=== PATIENT | female | born 1965 ===

== ENCOUNTER 2018-11-26 19:10 | Observation (INO) | payer MEDICARE ==
[~2018-11-26] VITALS: Ht 167.6 cm; Wt 90.7 kg
[2018-11-26] MEDS ORDERED: GABAPENTIN100 MG PO (19:33)
[2018-11-26] MEDS ORDERED: BAYER CHEWABLE81 MG PO (19:33)
[2018-11-26] MEDS ORDERED: CYCLOBENZAPRINE10 MG PO (19:33)
[2018-11-26] MEDS ORDERED: RENVELA0.8 GM PO (19:33)
[2018-11-26] MEDS ORDERED: PLAVIX75 MG PO (19:34)
[2018-11-26] MEDS ORDERED: ZOLOFT50 MG PO (19:34)
[2018-11-26] MEDS ORDERED: RENA-VITE TABL0.8 MG PO (19:34)
[2018-11-26] MEDS ORDERED: LISINOPRIL40 MG PO (19:34)
[2018-11-26] MEDS ORDERED: HYDRALAZINE HCL50 MG PO (19:35)
[2018-11-26] MEDS ORDERED: LASIX80 MG PO (19:35)
[2018-11-26] MEDS ORDERED: LIPITOR40 MG PO (19:35)
[2018-11-26 20:14] VITALS: BP 173/76
[2018-11-26 20:30] VITALS: BP 186/84
[2018-11-26 20:54] LABS: BASOPHILS 0.1 % (0-2); EOSINOPHILS 2.1 % (0-7); HEMOGLOBIN 10.5 g/dL (12-16); IMMATURE GRANULOCYTES 0.1 % (0-5); LYMPHOCYTES 10.7 % (15-50); MCH 30.9 pg (26.0-34.0); MCHC 31.8 g/dL (31.0-37.0); MCV 97.1 fL (80.0-100.0); MEAN PLATELET VOLUME 10.3 fL (7.4-10.4); MONOCYTES 3.6 % (2-11); NEUTROPHILS 83.4 % (40-80); PLATELET COUNT 186 10x3/uL (130-400); RDW 16.9 % (11.5-14.5)
[2018-11-26 21:09] LABS: INR 1.21 (0.85-1.17); PROTIME 14.7 SECONDS (11.6-15.0)
[2018-11-26 21:15] LABS: ALBUMIN 3.2 g/dL (3.4-5.0); ALKALINE PHOSPHATASE 198 U/L (46-116); ALT (SGPT) 44 U/L (10-68); BILIRUBIN - TOTAL 0.55 mg/dL (0.2-1.3); CALC OSMOLALITY 310 mosm/kg (275-300); CALCIUM 8.3 mg/dL (8.5-10.1); CARBON DIOXIDE 24.6 mmol/L (21.0-32.0); CHLORIDE - SERUM 100 mmol/L (98-107); CREATININE - SERUM 7.4 mg/dL (0.6-1.3); GLUCOSE 362 mg/dL (74-106); POTASSIUM - SERUM 5.2 mmol/L (3.5-5.1); PROTEIN - SERUM 6.4 g/dL (6.4-8.2); SODIUM 138 mmol/L (136-145); UREA NITROGEN 68 mg/dL (7-18); eGFR NON AFRICAN AMERICAN 6 mL/min (90-120)
--- NOTE | 2018-11-26 21:15 | NUR ---
PT TAKEN TO DIALYSIS ON 6L/MIN O2 AT THIS TIME. PT BELONGINGS BROUGHT WITH PT SON.
[2018-11-26 21:27] LABS: CKMB 5.3 U/L (0.0-3.6); CREATINE KINASE 118 UL (21-215); TROPONIN-I 0.024 ng/mL (0.000-0.060)
[2018-11-26 21:28] LABS: PRO BNP 45856 pg/mL (0-125)
--- NOTE | 2018-11-27 01:07 | NUR ---
PT BACK FROM DIALYSIS.
[2018-11-27 02:11] VITALS: BP 150/66
[2018-11-27] MEDS ORDERED: NOVOLOG100 UNIT/1 SC (03:37)
--- NOTE | 2018-11-27 03:40 | NUR ---
PT ARRIVED TO ROOM 2132 FROM ER WITH MOTHER. PT IS ALERT, CLOSING EYES AND SNORING QUICKLY, AROUSES TO VERBAL STIMULI. PT HAS A 20G IN RIGHT HAND. PATENT. CDI SWAB CAP IN PLACE. RIGHT HEMESPLIT NOTED WITH PRESSURE DRSG AND SAND BAG. NURSE REMOVED SAND BAG AND MARKED WHERE BLOOD IS NOTED. DID ASSESSMENT AND QUICK START AND HISTORY WITH NO CHANGE IN BLOOD SPOT IN RIGHT CHEST DRSG. ICE BAG PLACED ON CHEST. WILL LEAVE SANDBAG OFF AT THIS TIME. CHANGED DRSG ON RIGHT LOWER LEG. 5CM RED AND WARM AREA. A 2CM WHITE SOFT ROUND SORE NOTED. DRSG ON NOW CDI. PT ON 5L O2 NC. LEFT FOREARM HAS OLD AVF THAT ARE NOT WORKING. SIGN FOR RESERVE LEFT HUNG IN ROOM. PT HAS NO S/S OF DISTRESS. BED LOW AND CALL LIGHT IN REACH. WILL CPOC
[2018-11-27 04:00] VITALS: BP 149/60
[2018-11-27 04:24] VITALS: BP 149/66; BMI 32.3
--- NOTE | 2018-11-27 04:55 | NUR ---
CHECKED FOR BLEEDING. NO FURTHER BLEEDING NOTED. WILL CPOC
--- NOTE | 2018-11-27 07:00 | NUR ---
SHIFT ASSESSMENT COMPLTED. PT CARE ASSUMED, PT SLEEPING IN BED, MOTHER AT BEDSIDE. CALL LIGHT WITHIN REACH, WILL CONTINUE TO OBSERVE.
[2018-11-27 08:44] VITALS: BP 150/74
--- NOTE | 2018-11-27 09:33 | MORECARE ---
CASE MANAGEMENT DISCHARGE SUMMARY PATIENT: SANJEEV GUERRERO UNIT: [id number] ADM DATE: 11/27/18 AGE: 53 : 63 SEX: F ROOM/BED: D.2133 AUTHOR: AIDA URIBE PHYSICIAN: REFERRING PHYSICIAN: GONZALO GARG MD DATE OF SERVICE: 11/27/18 Discharge Plan Patient Name: SANJEEV GUERRERO Facility: [facility]:[place] : 1965 Planned Disposition: Home Anticipated Discharge Date: 11/27/18 Discharge Date: Expected LOS: 1 Initial Reviewer: [email or web address] Initial Review Date: 11/27/2018 Generated: 11/27/18 10:32 am Patient Name: SANJEEV GUERRERO Page [id number] at 0933 All edits/amendments must be made on the electronic document DICTATION DATE: 11/27/18931 CALCULUS TEACHER: MARIA LUISA 11/27/18931 RPT#: [id number] DC DATE: STATUS: ADM IN [facility] [address] [place] [address] END OF REPORT
[2018-11-27 12:29] VITALS: Ht 167.6 cm; Wt 90.7 kg
--- NOTE | 2018-11-27 15:51 | MORECARE ---
CASE MANAGEMENT DISCHARGE SUMMARY PATIENT: SANJEEV GUERRERO UNIT: [id number] ADM DATE: 11/27/18 AGE: 53 : 63 SEX: F ROOM/BED: D.2133 AUTHOR: AIDA URIBE PHYSICIAN: REFERRING PHYSICIAN: GONZALO GARG MD DATE OF SERVICE: 11/27/18 Discharge Plan Patient Name: SANJEEV GUERRERO [facility] : 1965 Planned Disposition: Home Anticipated Discharge Date: 11/27/18 Discharge Date: Expected LOS: 1 Initial Reviewer: [email or web address] Initial Review Date: 11/27/2018 Generated: 11/27/18 4:50 pm External Providers External Provider: [place] Next Contact Date: 11/27/2018 Service Request Date: Service Type: Resolution: Reviewer: Comments: Last DP export: 11/27/18 8:33 a Patient Name: SANJEEV GUERRERO Page [id number] at 1551 All edits/amendments must be made on the electronic document DICTATION DATE: 11/27/18 155 PVC LOADER: MARIA LUISA 11/27/18 1550 RPT#: [id number] ND DATE: STATUS: ADM IN [facility] [address] [place] [address] END OF REPORT
--- NOTE | 2018-11-27 16:01 | MORECARE ---
CASE MANAGEMENT DISCHARGE SUMMARY PATIENT: SANJEEV GUERRERO UNIT: [id number] ADM DATE: 11/27/18 AGE: 53 : 63 SEX: F ROOM/BED: D.2133 AUTHOR: AIDA URIBE PHYSICIAN: REFERRING PHYSICIAN: GONZALO GARG MD DATE OF SERVICE: 11/27/18 Discharge Plan Patient Name: SANJEEV GUERRERO Facility: [facility]:[place] : 1965 Planned Disposition: Home Anticipated Discharge Date: 11/27/18 Discharge Date: Expected LOS: 1 Initial Reviewer: [email or web address] Initial Review Date: 11/27/2018 Generated: 11/27/18 5:01 pm DCPIA - Discharge Planning Initial Assessment Updated by [email or web address]: Hollis Brownlee on 11/27/18 3:56 pm * Is the patient Alert and Oriented? Yes * How many steps to enter\exit or inside your home? RAMP * PCP DR. CHAVEZ IN [place] * Pharmacy [facility] IN [place] * Preadmission Environment Home with Family * ADLs Independent * Equipment None * Other Equipment [facility] - MEDICAL EQUIPMENT PROVIDER * List name and contact numbers for known caregivers / representatives who currently or will assist patient after discharge: DAYLIN YOLANDA, MOM, * Verbal permission to speak to the caregivers and representatives has been obtained from the patient. Yes * Community resources currently utilized Other * Please name any agencies selected above. OUTPATIENT DIALYSIS, [facility], [place], [address] * Additional services required to return to the preadmission environment? Yes * Can the patient safely return to the preadmission environment? Yes * Has this patient been hospitalized within the prior 30 days at any hospital? No Last DP export: 11/27/18 2:51 p Patient Name: SANJEEV GUERRERO Page [id number] at 1601 All edits/amendments must be made on the electronic document DICTATION DATE: 11/27/18 1600 FLOOR ASSOCIATE: MARIA LUISA 11/27/18 1600 RPT#: [id number] DC DATE: STATUS: ADM IN [facility] [address] [place] [address] END OF REPORT
--- NOTE | 2018-11-27 16:08 | MORECARE ---
CASE MANAGEMENT DISCHARGE SUMMARY PATIENT: SANJEEV GUERRERO UNIT: [id number] ADM DATE: 11/27/18 AGE: 53 : 63 SEX: F ROOM/BED: D.9387 AUTHOR: JOJO,DOC PHYSICIAN: REFERRING PHYSICIAN: GONZALO GARG MD DATE OF SERVICE: 11/27/18 Discharge Plan Patient Name: SANJEEV GUERRERO Facility: [facility]:[place] : 1965 Planned Disposition: Home Anticipated Discharge Date: 11/27/18 Discharge Date: Expected LOS: 1 Initial Reviewer: [email or web address] Initial Review Date: 11/27/2018 Generated: 11/27/18 5:08 pm Comments DCP- Discharge Planning Updated by [email or web address]: Hollis Hernandez on 11/27/18 3:[address] Patient Name: SANJEEV GUERRERO Admission Status: ER Accout number: [id number] Admission Date: 11-27-2018 : 1965 Admission Diagnosis: Attending: GONZALO GARG Current LOS: 1 Anticipated DC Date: 11-27-2018 Planned Disposition: Home Primary Insurance: MEDICARE A & B Discharge Planning Comments: CM SPOKE TO BEDSIDE NURSE WHO NOTIFIED CM THAT PT NEEDS HOME AND PORTABLE OXYGEN. OXYGEN TESTING RECEIVED, PT 84% ON ROOM AIR AT REST, REQUIRES 5 LNC OXYGEN FOR RECOVERY OF 93%. CM MET WITH PT AND MOTHER IN ROOM TO DISCUSS DISCHARGE PLANNING AND NEEDS. SANJEEV GUERRERO provided verbal consent to discuss current and ongoing needs with/in the presence of: DAYLIN, MOTHER. PT REPORTS LIVING AT HOME INDEPENDENTLY WITH HER MOTHER. PT HAS NO MEDICAL EQUIPMENT AND NO OUTSIDE SERVICES ASSISTING IN THE HOME. CM DISCUSSED AVAILABILITY OF HOME HEALTH, REHAB SERVICES AND MEDICAL EQUIPMENT. PT DOES WANT OXYGEN, REQUESTED [facility] PROVID[facility], CHOICE SIGNED. PT'S MOTHER TO TRANSPORT HOME TODAY. CM RECEIVED SIGNED DETAILED WRITTEN ORDER FROM DR. RAMOS FOR OXYGEN. [facility], , SPOKE TO RADHAMES WHO WILL WORK WITH [place] OFFICE TO GET OXYGEN DELIVERED TO ROOM SHORTLY FOR DISCHARGE HOME TODAY. CM CALLED [facility] IN [place], , SPOKE TO NIKOLAY AND PROVIDED OXYGEN REFERRAL INFORMATION. CM FAXED OXYGEN ORDERS AND SUPPORTING DOCUMENTATION TO [facility] AT [phone]. [facility] TO ARRANGE PORTABLE OXYGEN TO HOPITAL ROOM AND HOME OXYGEN FOR HOME DELIVERY AFTER PT ARRIVES HOME TODAY. BEDSIDE NURSE NOTIFIED, PT NOTIFIED. Platform Material Handling Supervisor: Hollis Hernandez Appended by Hollis Hernandez on 11/27/2018 16:03 CDT: PT'S PHYSICAL ADDRESS FOR DISCHARGE IS [address] [place] [address]. [id number]. DAYLIN GUERRERO, PT'S MOTHER, IS PT'S EMERGENCY CONTACT, . HOLLIS HERNANDEZ, CASE MANAGEMENT DCPIA - Discharge Planning Initial Assessment Updated by [email or web address]: Hollis Hernandez on 11/27/18 3:56 pm * Is the patient Alert and Oriented? Yes * How many steps to enter\exit or inside your home? RAMP * PCP DR. CHAVEZ IN [place] * Pharmacy [facility] IN [place] * Preadmission Environment Home with Family * ADLs Independent * Equipment None * Other Equipment [facility] - MEDICAL EQUIPMENT PROVIDER * List name and contact numbers for known caregivers / representatives who currently or will assist patient after discharge: DAYLIN GUERRERO, MOM, * Verbal permission to speak to the caregivers and representatives has been obtained from the patient. Yes * Community resources currently utilized Other * Please name any agencies selected above. OUTPATIENT DIALYSIS, [facility], [place], [address] * Additional services required to return to the preadmission environment? Yes * Can the patient safely return to the preadmission environment? Yes * Has this patient been hospitalized within the prior 30 days at any hospital? No Coverage Notice Reviewer: [email or web address] - Hollis Hernandez Notice Issued Date-Time: 11/27/2018 14:50 Notice Type: Patient Choice Letter Notice Delivered To: Family Member Relationship to Patient: Mother [employer] Licensee Name: DAYLIN GUERRERO Delivery Method: HAND - Hand Delivered Marni Days: Prior Verbal Notification: Recipient Understood Notice: Yes Recipient Signature: Yes Med Rec Note Co-signed by Attending: Coverage Notice Comment: MAMITAMMY Ellison DP export: 11/27/18 3:01 p Patient Name: SANJEEV GUERRERO Page [id number] at 1608 All edits/amendments must be made on the electronic document DICTATION DATE: 11/27/181607 DIRECTOR BUSINESS DEVELOPMENT: DM 11/27/181607 RPT#: [id number] DC DATE: STATUS: ADM IN [facility] [address] [place] [address] END OF REPORT
[2018-11-28 10:11] LABS: HEPATITIS C ANTIBODY <0.1 S/CO RAT (0.0-0.9)
== END 2018-11-27 18:10 | disposition home or self-care (01) ==
LOC: D.ER 19:10 → OBSVTIME 11-27 02:11 → D.M2 11-27 02:11
PROVIDERS: Emergency Medicine; ADMIT Internal Medicine; ATTEND Internal Medicine
DX: E11.22 Type 2 diabetes mellitus with diabetic chronic kidney disease (principal); I12.0 Hypertensive chronic kidney disease with stage 5 chronic kidney disease or end stage renal disease; N18.6 End stage renal disease; Z99.2 Dependence on renal dialysis; J44.9 Chronic obstructive pulmonary disease, unspecified; F17.200 Nicotine dependence, unspecified, uncomplicated; J81.1 Chronic pulmonary edema; R06.02 Shortness of breath